=== PATIENT | female | born 1970 | race Caucasian/White ===

== ENCOUNTER 2017-04-23 13:35 | Emergency (ER) | payer OTHER ==
[~2017-04-23] VITALS: Ht 182.9 cm; Wt 96.8 kg
[~2017-04-23 13:35] MED LIST: ABILIFY10 MG PO; ADVAIR 250/501 DISK IH; ALBUTEROL SULF8.5 GM IH; ALBUTEROL2.5 MG/3 M IH; AMOXICILLIN875 MG PO; CELEXA10 MG PO; CELEXA40 MG PO; COMBIVENT RESPIM4 GM IH; DESYREL100 MG PO; DUONEB 2.5-0.5 M3 ML IH; NORCO 7.5/321 TABLET PO; PREDNISONE20 MG PO; PROAIR HFA8.5 GM IH; QUETIAPINE FUMA50 MG PO; SAPHRIS5 MG SL; SEROQUEL200 MG PO; SEROQUEL300 MG PO; TRAZODONE HCL50 MG PO; TRILEPTAL150 MG PO; TRILEPTAL300 MG PO; VALIUM5 MG PO; VICODIN 5-3001 EACH PO; XANAX XR2 MG PO; XANAX XR3 MG PO; ZITHROMAX Z-PA250 MG PO
[2017-04-23 15:00] LABS: HEMATOCRIT 46.1 % (36.0-46.0); MCH 30.6 PG (29.0-34.0); MCHC 33.6 G/DL (30.0-36.0); MCV 91.1 FL (83-99); MEAN PLAT.VOLUME 11.7 uM^3 (9.5-12.4); PLATELET COUNT 178 K/uL (156-360); RBC DIS.WIDTH-CV 13.1 % (11.8-14.6); RBC DIS.WIDTH-SD 43.6 % (39-53); RED BLOOD COUNT 5.06 M/uL (3.80-5.20); WHITE BLOOD COUNT 8.4 K/uL (4.1-10.2)
[2017-04-23 15:15] LABS: CHLORIDE 105 mEq/L (99-109)
[2017-04-23 15:16] LABS: POTASSIUM 4.1 mEq/L (3.7-5.4); SODIUM 139 mEq/L (136-147)
[2017-04-23 15:17] LABS: GLUCOSE 73 mg/dL (70-99)
[2017-04-23 15:19] LABS: ANION GAP 11 MEQ/L (2-14)
[2017-04-23 15:21] LABS: GFR ESTIMATE (CALCULATED) > 59 mL/min/
[2017-04-23 15:22] LABS: UREA NITROGEN (BUN) 15 mg/dL (9-23)
[2017-04-23 15:32] LABS: QUANTITATIVE HCG < 4.0 MIU/ML
[2017-04-23 17:22] LABS: ADD MIUA? NO; BILIRUBIN NEGATIVE; BLOOD NEGATIVE; COLOR YELLOW ((YELLOW)); GLUCOSE (STRIP) NEGATIVE; KETONES NEGATIVE; LEUKOCYTES NEGATIVE; NITRITE NEGATIVE; PROTEIN (STRIP) NEGATIVE; SPECIFIC GRAVITY 1.028 (1.000-1.030); UCUL ADDED? NO; UROBILINOGEN 0.2 MG/DL (0.2-1.0)
[2017-04-23] MEDS ORDERED: PYRIDIUM200 MG PO (19:56)
[2017-04-23 20:33] LABS: TOTAL BILIRUBIN 0.3 mg/dL (0.0-1.0)
[2017-04-23 20:34] LABS: ALKALINE PHOSPHATASE 63 IU/L (3-129)
[2017-04-23 20:36] LABS: DIRECT BILIRUBIN 0.1 mg/dL (0.0-0.3)
[2017-04-23 20:37] LABS: LIPASE 35 U/L (1.0-51.0)
[2017-04-23 20:57] VITALS: BP 135/92
== END 2017-04-23 20:59 | disposition home or self-care (01) ==
LOC: EME 13:35
DX: R30.0 Dysuria (principal); R10.9 Unspecified abdominal pain; Z87.442 Personal history of urinary calculi; F17.200 Nicotine dependence, unspecified, uncomplicated
CPT/HCPCS: 74176; 80048; 80076; 81003; 83690; 84702; 85027; 99281; 99284

== ENCOUNTER 2017-06-30 13:15 | Emergency (ER) | payer OTHER ==
[~2017-06-30] VITALS: Ht 177.8 cm; Wt 99.4 kg
[~2017-06-30 13:15] MED LIST changes: +PYRIDIUM200 MG PO
[2017-06-30] MEDS ORDERED: PREDNISONE20 MG PO (17:16)
[2017-06-30] MEDS ORDERED: NORCO 7.5/321 TABLET PO (17:18)
[2017-06-30] MEDS ORDERED: VALIUM5 MG PO (17:18)
[2017-06-30 17:48] VITALS: BP 145/84
== END 2017-06-30 17:49 | disposition home or self-care (01) ==
LOC: EME 13:15
DX: S39.012A Strain of muscle, fascia and tendon of lower back, initial encounter (principal); M54.41 Lumbago with sciatica, right side; M54.42 Lumbago with sciatica, left side; X50.9XXA Other and unspecified overexertion or strenuous movements or postures, initial encounter
CPT/HCPCS: 99281; 99284; J3010; J3360; J7512

== ENCOUNTER 2017-07-03 13:34 | Emergency (ER) | payer OTHER ==
[~2017-07-03] VITALS: Ht 177.8 cm; Wt 100.4 kg
[2017-07-03 15:10] VITALS: BP 128/84
== END 2017-07-03 15:10 | disposition home or self-care (01) ==
LOC: EME 13:34
DX: S39.012D Strain of muscle, fascia and tendon of lower back, subsequent encounter (principal)
CPT/HCPCS: 72100; 99281; 99284; J2270

== ENCOUNTER 2017-07-24 11:14 | Emergency (ER) | payer OTHER ==
[~2017-07-24] VITALS: Ht 177.8 cm; Wt 98.4 kg
[2017-07-24 12:18] LABS: ADD MIUA? NO; BILIRUBIN NEGATIVE; BLOOD NEGATIVE; COLOR COLORLESS ((YELLOW)); GLUCOSE (STRIP) NEGATIVE; KETONES NEGATIVE; LEUKOCYTES NEGATIVE; NITRITE NEGATIVE; PROTEIN (STRIP) NEGATIVE; SPECIFIC GRAVITY 1.003 (1.000-1.030); UCUL ADDED? NO; UROBILINOGEN 0.2 MG/DL (0.2-1.0)
[2017-07-24 12:34] LABS: HEMATOCRIT 38.3 % (36.0-46.0); MCH 31.9 PG (29.0-34.0); MCHC 33.9 G/DL (30.0-36.0); MCV 94.1 FL (83-99); MEAN PLAT.VOLUME 11.6 uM^3 (9.5-12.4); PLATELET COUNT 165 K/uL (156-360); RBC DIS.WIDTH-CV 13.2 % (11.8-14.6); RBC DIS.WIDTH-SD 45.7 % (39-53); RED BLOOD COUNT 4.07 M/uL (3.80-5.20); WHITE BLOOD COUNT 6.6 K/uL (4.1-10.2)
[2017-07-24 12:44] LABS: CHLORIDE 108 mEq/L (99-109); POTASSIUM 3.9 mEq/L (3.7-5.4); SODIUM 143 mEq/L (136-147)
[2017-07-24 12:46] LABS: GLUCOSE 86 mg/dL (70-99)
[2017-07-24 12:48] LABS: ANION GAP 14 MEQ/L (2-14); TOTAL BILIRUBIN 0.3 mg/dL (0.0-1.0)
[2017-07-24 12:50] LABS: ALKALINE PHOSPHATASE 40 IU/L (3-129); GFR ESTIMATE (CALCULATED) > 59 mL/min/
[2017-07-24 12:51] LABS: UREA NITROGEN (BUN) 11 mg/dL (9-23)
[2017-07-24 12:52] LABS: DIRECT BILIRUBIN 0.1 mg/dL (0.0-0.3)
[2017-07-24 12:53] LABS: LIPASE 41 U/L (1.0-51.0)
[2017-07-24 14:26] VITALS: BP 111/61
== END 2017-07-24 14:26 | disposition home or self-care (01) ==
LOC: EME 11:14
PROVIDERS: Emergency Medicine
DX: R10.32 Left lower quadrant pain (principal); Z87.442 Personal history of urinary calculi; F17.200 Nicotine dependence, unspecified, uncomplicated
CPT/HCPCS: 74176; 74177; 80048; 80076; 81003; 83690; 85027; 87086; 99281; 99284; J2270; J2405; J3010; J7030

== ENCOUNTER → 2017-08-05 | Outpatient (CLI) | payer OTHER | END | disposition home or self-care (01) | LOC: RES 07:38 | DX: Z02.71 Encounter for disability determination (principal) | CPT/HCPCS: 94060; 94620; 94729 ==

== ENCOUNTER 2017-09-23 13:36 | Emergency (ER) | payer OTHER ==
[~2017-09-23] VITALS: Ht 172.7 cm; Wt 97.7 kg
[2017-09-23] MEDS ORDERED: AMBIEN10 MG PO (15:53)
[2017-09-23] MEDS ORDERED: LATUDA80 MG PO (15:54)
[2017-09-23] MEDS ORDERED: PERCOCET 5/31 TABLET PO (15:55)
[2017-09-23] MEDS ORDERED: PREDNISONE10 M1 PO (15:55)
[2017-09-23 16:16] VITALS: BP 128/90
== END 2017-09-23 16:46 | disposition home or self-care (01) ==
LOC: EME 13:36
DX: M54.5 Low back pain (principal); I10 Essential (primary) hypertension; F32.9 Major depressive disorder, single episode, unspecified; F17.200 Nicotine dependence, unspecified, uncomplicated; Z88.8 Allergy status to other drugs, medicaments and biological substances
CPT/HCPCS: 99281; 99284

== ENCOUNTER 2017-11-15 09:52 | Emergency (ER) | payer OTHER ==
[~2017-11-15] VITALS: Ht 177.8 cm; Wt 97.3 kg
[~2017-11-15 09:52] MED LIST changes: +AMBIEN10 MG PO; +LATUDA80 MG PO; +PERCOCET 5/31 TABLET PO; +PREDNISONE10 M1 PO
[2017-11-15] MEDS ORDERED: ACETAMINOPHEN-1 EAC1 PO (12:07)
[2017-11-15 12:23] VITALS: BP 132/78
== END 2017-11-15 12:40 | disposition home or self-care (01) ==
LOC: EME 09:52
DX: S20.221A Contusion of right back wall of thorax, initial encounter (principal); S70.11XA Contusion of right thigh, initial encounter; W00.0XXA Fall on same level due to ice and snow, initial encounter; M54.5 Low back pain; G89.29 Other chronic pain; Z88.6 Allergy status to analgesic agent
CPT/HCPCS: 71101; 99281; 99284; J3010

== ENCOUNTER 2018-02-03 17:01 | Emergency (ER) | payer OTHER ==
[~2018-02-03] VITALS: Ht 180.3 cm; Wt 96.0 kg
[~2018-02-03 17:01] MED LIST changes: +ACETAMINOPHEN-1 EAC1 PO
[2018-02-03] MEDS ORDERED: ULTRAM50 MG PO (19:07)
[2018-02-03 19:38] VITALS: BP 150/82
== END 2018-02-03 19:39 | disposition home or self-care (01) ==
LOC: EME 17:01
DX: S89.92XA Unspecified injury of left lower leg, initial encounter (principal); M17.12 Unilateral primary osteoarthritis, left knee; F10.129 Alcohol abuse with intoxication, unspecified; Y90.5 Blood alcohol level of 100-119 mg/100 ml; W18.11XA Fall from or off toilet without subsequent striking against object, initial encounter; Z88.6 Allergy status to analgesic agent
CPT/HCPCS: 73564; 99281; 99284; G0480

== ENCOUNTER 2018-02-05 12:54 | Inpatient (IN) | payer OTHER ==
[~2018-02-05] VITALS: Ht 175.3 cm; Wt 94.7 kg
[~2018-02-05 12:54] MED LIST changes: +ULTRAM50 MG PO
[2018-02-05 13:48] LABS: APPEARANCE CLOUDY ((CLEAR)); BILIRUBIN NEGATIVE; BLOOD NEGATIVE; COLOR YELLOW ((YELLOW)); GLUCOSE (STRIP) NEGATIVE; KETONES NEGATIVE; LEUKOCYTES NEGATIVE; NITRITE NEGATIVE; PROTEIN (STRIP) 30; SPECIFIC GRAVITY 1.004 (1.000-1.030); UROBILINOGEN 0.2 MG/DL (0.2-1.0)
[2018-02-05 13:54] LABS: BACTERIA RARE /HPF; CALCIUM OXALATE CRYSTALS 3+ /HPF; EPITHELIAL CELLS RARE /HPF; MUCUS NONE SEEN /LPF; RED BLOOD CELLS 0-5 /HPF (0-5); UCUL ADDED? NO; WHITE BLOOD CELLS 0-5 /HPF (0-5)
[2018-02-05 14:05] LABS: BASOPHIL (%) 0.4 % (0-1); EOSINOPHIL (%) 1.4 % (0-5); EOSINOPHIL COUNT 0.1 K/uL (0-0.3); HEMATOCRIT 39.6 % (36.0-46.0); HEMOGLOBIN 13.7 G/DL (11.9-15.5); IMMATURE GRANULOCYTE (%) 0.3 % (0.0-0.7); LYMPHOCYTE (%) 21.6 % (15-42); LYMPHOCYTE COUNT 1.5 K/uL (1.0-2.8); MCH 33.1 PG (29.0-34.0); MCHC 34.6 G/DL (30.0-36.0); MCV 95.7 FL (83-99); MONOCYTE (%) 6.8 % (3-12); MONOCYTE COUNT 0.5 K/uL (0-0.8); NEUTROPHIL (%) 69.5 % (45-76); NEUTROPHIL COUNT 4.9 K/uL (1.8-6.4); PLATELET COUNT 147 K/uL (156-360); RBC DIS.WIDTH-SD 45.6 % (39-53); RED BLOOD COUNT 4.14 M/uL (3.80-5.20)
[2018-02-05 14:13] LABS: AMPHETAMINE NEGATIVE (500 ng/mL); BARBITURATES NEGATIVE (200 ng/mL); BENZODIAZEPINES NEGATIVE (150 ng/mL); BUPRENORPHINE NEGATIVE (10 ng/mL); COCAINE NEGATIVE (150 ng/mL); METHADONE NEGATIVE (200 ng/mL); METHAMPHETAMINE NEGATIVE (500 ng/mL); OPIATES (MORPHINE) NEGATIVE (100 ng/mL); OXYCODONE NEGATIVE (100 ng/mL); PHENCYCLIDINE NEGATIVE (25 ng/mL); PROPOXYPHENE NEGATIVE (300 ng/mL); THC CANNABINOIDS PRESUMPTIVE POSITIVE (50 ng/mL); TRICYCLIC ANTIDEPRESSANTS NEGATIVE (300 ng/mL)
[2018-02-05 14:16] LABS: ALBUMIN 4.1 g/dL (3.2-4.8)
[2018-02-05 14:17] LABS: CHLORIDE 104 mEq/L (99-109); POTASSIUM 3.5 mEq/L (3.7-5.4); SODIUM 141 mEq/L (136-147)
[2018-02-05 14:19] LABS: GLUCOSE 99 mg/dL (70-99); TOTAL PROTEIN 6.5 g/dL (6.4-8.3)
[2018-02-05 14:21] LABS: TOTAL BILIRUBIN 0.5 mg/dL (0.0-1.0)
[2018-02-05 14:22] LABS: SERUM ETHYL ALCOHOL 270 mg/dL
[2018-02-05 14:23] LABS: ALKALINE PHOSPHATASE 49 IU/L (3-129); CREATININE 0.8 mg/dL (0.6-1.3); GFR ESTIMATE (CALCULATED) > 59 mL/min/
[2018-02-05 14:24] LABS: AST (GOT) 33 IU/L (2-34)
[2018-02-05 14:25] LABS: UREA NITROGEN (BUN) 9 mg/dL (9-23)
[2018-02-05 14:26] LABS: ALT (GPT) 47 IU/L (3-49); SALICYLATE < 5.0 MG/DL (15-30)
[2018-02-05 14:27] LABS: ACETAMINOPHEN (TYLENOL) < 10 mcg/mL (10-30)
[2018-02-05 14:36] LABS: QUANTITATIVE HCG < 4.0 MIU/ML
[2018-02-06] MEDS ORDERED: WELLBUTRIN SR150 MG PO (01:13)
[2018-02-06] MEDS ORDERED: LISINOPRIL10 MG PO (01:13)
[2018-02-06] MEDS ORDERED: CELEXA20 MG PO (01:13)
[2018-02-06] MEDS ORDERED: KLONOPIN0.5 M1 PO (01:14)
[2018-02-06] MEDS ORDERED: LATUDA80 MG PO (01:14)
[2018-02-06] MEDS ORDERED: DESYREL 150 MG150 MG PO (01:15)
[2018-02-06] MEDS ORDERED: MINIPRESS1 MG PO (01:15)
[2018-02-06 01:51] VITALS: BP 154/85
[2018-02-06 08:20] VITALS: BP 163/77
[2018-02-06 15:38] VITALS: BP 124/64
[2018-02-07 08:12] VITALS: BP 147/88
[2018-02-07 15:48] VITALS: BP 146/85
[2018-02-08 07:54] VITALS: BP 141/79
[2018-02-08 15:43] VITALS: BP 110/63
[2018-02-09 08:12] VITALS: BP 136/87
[2018-02-09 16:21] VITALS: BP 130/76
[2018-02-10 08:09] VITALS: BP 144/90
[2018-02-10] MEDS ORDERED: DESYREL 150 MG150 MG PO (09:11)
[2018-02-10] MEDS ORDERED: WELLBUTRIN SR150 MG PO (09:11)
[2018-02-10] MEDS ORDERED: CELEXA20 MG PO (09:11)
== END 2018-02-10 10:39 | disposition other institution (70) | DRG 897 ==
LOC: EME 12:54 → 1WEST 23:06 → EDOF 23:06 → 1WEST 23:06 → ENRESERV 02-06 00:36 → 1WEST 02-06 01:43
PROVIDERS: Emergency Medicine
PROC: HZ2ZZZZ Detoxification Services for Substance Abuse Treatment (ICD-10-PCS; principal; 2018-02-05)
DX: F10.229 Alcohol dependence with intoxication, unspecified (principal); F32.9 Major depressive disorder, single episode, unspecified; Y90.8 Blood alcohol level of 240 mg/100 ml or more; T43.212A Poisoning by selective serotonin and norepinephrine reuptake inhibitors, intentional self-harm, initial encounter; F12.90 Cannabis use, unspecified, uncomplicated; F51.04 Psychophysiologic insomnia; J44.9 Chronic obstructive pulmonary disease, unspecified; K59.00 Constipation, unspecified; F17.200 Nicotine dependence, unspecified, uncomplicated; Z78.1 Physical restraint status; Z87.442 Personal history of urinary calculi; Z23 Encounter for immunization
CPT/HCPCS: 71046; 80053; 81003; 84702; 84999; 85025; 90837; 93005; 94640; 94640 76; 97150 GO; 97165 GO; 99202; 99281; 99285; G0480; J1630; J2060; J3486; J7030

== ENCOUNTER 2018-04-05 10:43 | Emergency (ER) | payer OTHER ==
[~2018-04-05] VITALS: Ht 175.3 cm; Wt 98.6 kg
[~2018-04-05 10:43] MED LIST changes: +CELEXA20 MG PO; +DESYREL 150 MG150 MG PO; +KLONOPIN0.5 M1 PO; +LISINOPRIL10 MG PO; +MINIPRESS1 MG PO; +WELLBUTRIN SR150 MG PO
[2018-04-05 11:06] VITALS: BP 119/60
== END 2018-04-05 13:50 | disposition left against medical advice (07) ==
LOC: EME 10:43
DX: M54.9 Dorsalgia, unspecified (principal); G89.29 Other chronic pain; F10.10 Alcohol abuse, uncomplicated; Z91.81 History of falling; Z88.6 Allergy status to analgesic agent

== ENCOUNTER 2018-04-08 14:41 | Inpatient (IN) | payer OTHER ==
[~2018-04-08] VITALS: Ht 175.3 cm; Wt 99.6 kg
[2018-04-08 15:31] LABS: HEMATOCRIT 41.2 % (36.0-46.0); HEMOGLOBIN 14.5 G/DL (11.9-15.5); MCH 33.3 PG (29.0-34.0); MCHC 35.2 G/DL (30.0-36.0); MCV 94.7 FL (83-99); PLATELET COUNT 167 K/uL (156-360); RBC DIS.WIDTH-CV 12.5 % (11.8-14.6); RBC DIS.WIDTH-SD 43.8 % (39-53); RED BLOOD COUNT 4.35 M/uL (3.80-5.20); WHITE BLOOD COUNT 9.7 K/uL (4.1-10.2)
[2018-04-08 15:45] LABS: CHLORIDE 106 mEq/L (99-109)
[2018-04-08 15:46] LABS: SODIUM 143 mEq/L (136-147)
[2018-04-08 15:47] LABS: GLUCOSE 110 mg/dL (70-99)
[2018-04-08 15:50] LABS: SERUM ETHYL ALCOHOL 195 mg/dL
[2018-04-08 15:51] LABS: CREATININE 0.8 mg/dL (0.6-1.3); GFR ESTIMATE (CALCULATED) > 59 mL/min/
[2018-04-08 15:52] LABS: UREA NITROGEN (BUN) 15 mg/dL (9-23)
[2018-04-08 15:59] LABS: QUANTITATIVE HCG < 4.0 MIU/ML
[2018-04-08 16:24] LABS: AMPHETAMINE NEGATIVE (500 ng/mL); COCAINE NEGATIVE (150 ng/mL); METHAMPHETAMINE NEGATIVE (500 ng/mL); OPIATES (MORPHINE) NEGATIVE (100 ng/mL); PHENCYCLIDINE NEGATIVE (25 ng/mL); THC CANNABINOIDS PRESUMPTIVE POSITIVE (50 ng/mL)
[2018-04-08 16:25] LABS: BARBITURATES NEGATIVE (200 ng/mL); BENZODIAZEPINES NEGATIVE (150 ng/mL); BUPRENORPHINE NEGATIVE (10 ng/mL); METHADONE NEGATIVE (200 ng/mL); OXYCODONE NEGATIVE (100 ng/mL); PROPOXYPHENE NEGATIVE (300 ng/mL); TRICYCLIC ANTIDEPRESSANTS NEGATIVE (300 ng/mL)
[2018-04-08] MEDS ORDERED: KLONOPIN0.5 M1 PO (23:33)
[2018-04-08] MEDS ORDERED: AMBIEN10 MG PO (23:34)
[2018-04-08] MEDS ORDERED: LATUDA80 MG PO (23:34)
[2018-04-08 23:56] VITALS: BP 174/82
[2018-04-09 07:55] VITALS: BP 116/70
[2018-04-09 16:03] VITALS: BP 101/58
[2018-04-10 07:59] VITALS: BP 146/66
[2018-04-10 11:14] LABS: APPEARANCE SL.HAZY ((CLEAR)); BILIRUBIN NEGATIVE; BLOOD NEGATIVE; COLOR YELLOW ((YELLOW)); GLUCOSE (STRIP) NEGATIVE; KETONES NEGATIVE; LEUKOCYTES NEGATIVE; NITRITE NEGATIVE; PROTEIN (STRIP) NEGATIVE; SPECIFIC GRAVITY 1.021 (1.000-1.030); UROBILINOGEN 0.2 MG/DL (0.2-1.0)
[2018-04-10 11:33] LABS: BACTERIA RARE /HPF; EPITHELIAL CELLS RARE /HPF; MUCUS TRACE /LPF; RED BLOOD CELLS 0-5 /HPF (0-5); WHITE BLOOD CELLS 0-5 /HPF (0-5)
[2018-04-10 16:30] VITALS: BP 143/82
[2018-04-11 08:02] VITALS: BP 135/77
[2018-04-11] MEDS ORDERED: BUPROPION HCL150 M2 PO (08:03)
[2018-04-11] MEDS ORDERED: GEODON40 MG PO (08:03)
[2018-04-11] MEDS ORDERED: CELEXA20 MG PO (08:03)
== END 2018-04-11 09:34 | disposition home or self-care (01) | DRG 881 ==
LOC: EME 14:41 → EDOF 21:46 → 1WEST 21:46 → ENRESERV 23:00 → 1WEST 23:50
PROVIDERS: Emergency Medicine; Psychiatry & Neurology Psychiatry
DX: F32.9 Major depressive disorder, single episode, unspecified (principal); F10.20 Alcohol dependence, uncomplicated; F12.10 Cannabis abuse, uncomplicated; Y90.6 Blood alcohol level of 120-199 mg/100 ml; B19.20 Unspecified viral hepatitis C without hepatic coma; J44.9 Chronic obstructive pulmonary disease, unspecified; R45.851 Suicidal ideations
CPT/HCPCS: 80048; 81003; 84702; 84999; 85027; 90839; 94640; 94640 76; 97150 GO; 97165 GO; 99202; 99281; 99285; G0480; Q0177